=== PATIENT | male | born 1995 | race Asian ===

== ENCOUNTER 2016-09-18 11:07 | Inpatient (IN) | payer BC ==
--- NOTE | 2016-09-15 22:13 | NUR ---
Rounds Patient is in stable condition. No signs of distress noted. Call light is within reach.
[~2016-09-18] VITALS: Ht 170.2 cm; Wt 63.5 kg
[2016-09-18 11:17] VITALS: BP 117/69; PULSE 127; RESP 18; TEMP 99.2; O2SAT 100
--- NOTE | 2016-09-18 11:17 | NUR ---
Patient to ER bed 7 to gown for evaluation. Side rails up. Assumed care.
--- NOTE | 2016-09-18 11:20 | NUR ---
Pt AAOx4 c/o RLQ abd since this AM. Pt has no significant med hx. Pt c/o nausea also.
--- NOTE | 2016-09-18 11:25 | NUR ---
ER at bedside examining patient.
[2016-09-18] MEDS ORDERED: ONDANSETRON HCL 4 MG/2 ML VIAL IVP ONE (12:00)
[2016-09-18] MEDS ORDERED: MORPHINE 4 MG/ML INJ. SYRINGE IVP ONE (12:00)
[2016-09-18 12:01] LABS: BILIRUBIN,URINE NEGATIVE (NEGATIVE); BLOOD, URINE NEGATIVE (NEGATIVE); CLARITY/URINE CLEAR (CLEAR); COLOR,URINE YELLOW (YELLOW); GLUCOSE,URINE NEGATIVE (NEGATIVE); KETONES,URINE TRACE (NEGATIVE); LEUKOCYTE ESTERASE ,URINE NEGATIVE (NEGATIVE); NITRITE, URINE NEGATIVE (NEGATIVE); PH,URINE 8.5 (5.0-8.0); PROTEIN URINE NEGATIVE (NEGATIVE); UROBILINOGEN,URINE 0.2 (0.2-1.0)
[2016-09-18 12:16] LABS: BASOPHILS % (AUTO) 0.1 % (0.0-2.0); EOSINOPHILS % (AUTO) 0.3 % (0.0-4.0); HEMATOCRIT 43.8 % (36-54); HEMOGLOBIN 14.4 g/dL (14.0-18.0); LYMPHOCYTES # (AUTO) 1.3 K/uL (1.0-5.5); LYMPHOCYTES % (AUTO) 9.8 % (20.5-51.5); MEAN CORPUSCULAR HEMOGLOBIN 27 pg (27-31); MEAN CORPUSCULAR HGB CONC 33 % (32-36); MEAN CORPUSCULAR VOLUME 80 fL (79.0-98.0); MONOCYTES # (AUTO) 0.3 K/uL (0.0-1.0); MONOCYTES % (AUTO) 2.6 % (1.7-9.3); NEUTROPHILS # (AUTO) 11.5 K/uL (1.8-7.7); NEUTROPHILS % (AUTO) 87.2 % (40.0-70.0); PLATELET COUNT (AUTO) 238 K/uL (130-430); RED BLOOD CELL COUNT(AUTO) 5.44 MIL/uL (4.2-6.2); WHITE BLOOD COUNT (AUTO) 13.1 K/uL (4.8-10.8)
[2016-09-18 12:24] LABS: CALCIUM 8.9 mg/dL (8.4-11.0); CREATININE 0.97 mg/dL (0.55-1.30); POTASSIUM 3.4 mmol/L (3.5-5.1); PROTHROMBIN TIME 10.8 SECS (9.5-12.5)
[2016-09-18 12:29] LABS: TOTAL BILIRUBIN 1.9 mg/dL (0.0-1.0); TOTAL PROTEIN, SERUM 7.7 g/dL (6.4-8.3)
--- NOTE | 2016-09-18 12:30 | NUR ---
Pt medicated tolerated well. Continuing to monitor
--- NOTE | 2016-09-18 13:05 | NUR ---
Pt received CT scan abd/pelvis tolerated well. Pt report nausea resolved,paini resolving
[2016-09-18] MEDS ORDERED: ONDANSETRON HCL 4 MG/2 ML VIAL ONE (14:13)
[2016-09-18] MEDS ORDERED: NACL 0.9% 1,000 ML IV ONE (14:45)
[2016-09-18] MEDS ORDERED: PROMETHAZINE HCL 25 MG/ML AMP IVP ONE (14:45)
--- NOTE | 2016-09-18 15:00 | NUR ---
At this of discharge pt did not appear stable for follow up. Dr. Mantilla informed. Pt and family agreed for pt admission.
--- NOTE | 2016-09-18 15:45 | NUR ---
Patient will be admitted to care of Dr. Romano. Admitted to Med/surg unit. Will go to room 117a. Summary report printed. Report given to Admission RN.
--- NOTE | 2016-09-18 16:01 | NUR ---
ADMISSION NOTE Received patient from ER via gurney. Patient admitted with diagnosis of ABDOMINAL PAIN. Patient is awake, alert, oriented X 4. Patient is aware that FREDDY will be the RN and the room number is 117A. Patient oriented to hospital room, call light, toileting, pain management and safety-teach back done. Personal belongings checked and Belongings List documented. Call light within reach.
[2016-09-18 16:18] VITALS: BP 97/52; PULSE 95; RESP 18; TEMP 98.2; O2SAT 99
--- NOTE | 2016-09-18 16:40 | NUR ---
INITIAL NOTES RECEIVED PATIENT ON BED AWAKE.BREATHING EVEN AND UNLABORED WITH COMPLAIN OF MILD DISCOMFORT TO ABDOMEN 07/25.WITH IVF INFUSING WELL;NO SIGNS AND SYMPTOMS OF INFILTRATION.SAFETY AND FALL PRECAUTIONS IN PLACE.CALL LIGHT WITHIN REACH.ORIENTED TO ROOM.INSTRUCTED NOT TO GET UP UNASSISTED DUE TO RISK FOR FALL;AGREED AND VERBALIZED UNDERSTANDING
[2016-09-18] MEDS ORDERED: FLU VACC QS 2016-17(36MOS+)/PF 0.5 ML/SYR SYRINGE I.M. PRN (16:45)
--- NOTE | 2016-09-18 17:40 | NUR ---
NOTES DR. CHONG CAME AND EXAMINED THE PATIENT;WAITING FOR ORDERS
[2016-09-18] MEDS: POTASSIUM CHLORIDE 20 MEQ in D5NS 1,000 ML IV SCH (17:57)
[2016-09-18] MEDS ORDERED: ONDANSETRON HCL 4 MG/2 ML VIAL IVP PRN (18:00)
[2016-09-18] MEDS ORDERED: KETOROLAC TROMETHAMINE 15 MG VIAL IVP PRN (18:00)
--- NOTE | 2016-09-18 18:35 | NUR ---
CLOSING NOTES PATIENT ON BED AWAKE.BREATHING EVEN AND UNLABORED.NO ACUTE DISTRESS.IVF INFUSING WELL;NO SIGNS AND SYMPTOMS OF INFILTRATION.SAFETY AND FALL PRECAUTIONS IN PLACE.CALL LIGHT WITHIN REACH.WILL ENDORSE TO NEXT SHIFT ACCORDINGLY
--- NOTE | 2016-09-18 20:03 | NUR ---
Opening Note Report received from Kristyn day shift RN. Patient is in stable condition. No signs of distress noted. Call light is within reach. Instructed to use it whenever in need of assistance to avoid any falls. Patient verbalized understanding. IV is on the left hand 22g running D5NS@100.
[2016-09-18 20:05] VITALS: BP 105/46; PULSE 89; RESP 16; TEMP 99.7; O2SAT 98
[2016-09-18] MEDS: ENOXAPARIN SODIUM 40 MG/0.4 ML SYRINGE SUBCUT SCH ×2 (21:09→21:21)
--- NOTE | 2016-09-18 22:32 | NUR ---
Rounds Patient is currently sleeping in bed. Call light is within reach.
--- NOTE | 2016-09-19 00:17 | NUR ---
Rounds Patient is currently sleeping in bed. No signs of distress noted. Call light is within reach.
[2016-09-19 00:21] VITALS: BP 109/50; PULSE 87; RESP 15; TEMP 99.1; O2SAT 97
--- NOTE | 2016-09-19 02:32 | NUR ---
Rounds Patient is resting in bed. Call light is within reach.
[2016-09-19] MEDS: POTASSIUM CHLORIDE 20 MEQ in D5NS 1,000 ML IV SCH ×3 (02:44→23:35)
[2016-09-19 04:23] VITALS: BP 102/56; PULSE 68; RESP 15; TEMP 98.7; O2SAT 100
--- NOTE | 2016-09-19 04:37 | NUR ---
Rounds Patient is complaining of diarrhea. Will notify MD later on this morning.
[2016-09-19 06:42] LABS: CALCIUM 7.8 mg/dL (8.4-11.0); CREATININE 0.94 mg/dL (0.55-1.30); POTASSIUM 3.2 mmol/L (3.5-5.1)
[2016-09-19 06:48] LABS: BASOPHILS % (AUTO) 0.1 % (0.0-2.0); EOSINOPHILS # (AUTO) 0.1 K/uL (0.0-0.4); EOSINOPHILS % (AUTO) 1.6 % (0.0-4.0); HEMATOCRIT 35.4 % (36-54); HEMOGLOBIN 11.9 g/dL (14.0-18.0); LYMPHOCYTES # (AUTO) 1.8 K/uL (1.0-5.5); LYMPHOCYTES % (AUTO) 19.3 % (20.5-51.5); MEAN CORPUSCULAR HEMOGLOBIN 27 pg (27-31); MEAN CORPUSCULAR HGB CONC 33 % (32-36); MEAN CORPUSCULAR VOLUME 81 fL (79.0-98.0); MONOCYTES # (AUTO) 0.6 K/uL (0.0-1.0); MONOCYTES % (AUTO) 6.2 % (1.7-9.3); NEUTROPHILS # (AUTO) 6.6 K/uL (1.8-7.7); NEUTROPHILS % (AUTO) 72.8 % (40.0-70.0); PLATELET COUNT (AUTO) 176 K/uL (130-430); RED CELL DISTRIBUTION WIDTH 12.9 % (9.0-15.0)
--- NOTE | 2016-09-19 06:50 | NUR ---
Opening Note Patient is currently resting in bed. No complaints at the moment. IV is on the left hand running D51/2NS+20KCL@100ml/hr. Call light is within reach. Will give report to the oncoming nurse.
[2016-09-19 07:03] LABS: WHITE BLOOD COUNT (AUTO) 9.1 K/uL (4.8-10.8)
--- NOTE | 2016-09-19 07:27 | NUR ---
INITIAL NOTES RECEIVED PATIENT ON BED ASLEEP.BREATHING EVEN AND UNLABORED.NO ACUTE DISTRESS.IVF INFUSING WELL;NO SIGNS AND SYMPTOMS OF INFILTRATION.SAFETY AND FALL PRECAUTIONS IN PLACE.CALL LIGHT WITHIN REACH
[2016-09-19 08:21] VITALS: BP 119/67; PULSE 80; RESP 18; TEMP 98.7; O2SAT 100
--- NOTE | 2016-09-19 11:00 | NUR ---
NOTES CHECKED PATIENT;NEEDS ATTENDED TO
--- NOTE | 2016-09-19 13:24 | NUR ---
NOTES DR. CHONG CAME AND EXAMINED THE PATIENT;WITH ORDERS MADE AND CARRIED OUT
[2016-09-19] MEDS ORDERED: POTASSIUM CHLORIDE 20 MEQ TAB.PRT.SR PO ONE (13:30)
--- NOTE | 2016-09-19 14:18 | NUR ---
NOTES CHECKED PATIENT;NO ACUTE DISTRESS
--- NOTE | 2016-09-19 17:37 | NUR ---
NOTES CHECKED PATIENT.NEEDS ATTENDED TO
--- NOTE | 2016-09-19 19:50 | NUR ---
ROUNDS PATIENT IN BED, AWAKE, ALERT, ORIENTED, NOT IN DISTRESS, VITALS STABLE. DENIES ANY ABDOMINAL PAIN, N/V, NOR DIARRHEA AT THIS TIME. ASSESSMENT DONE AND DOCUMENTED. SEE FLOWSHEET. NEEDS ATTENDED TO. SAFETY PRECAUTION MEASURES IN PLACED. BED IN LOW AND LOCKED POSITION. CALL LIGHT PLACED WITHIN REACH.
--- NOTE | 2016-09-19 22:00 | NUR ---
ROUNDS PATIENT ASLEEP, NO SOB NOTED, WILL CONTINUE TO MONITOR.
--- NOTE | 2016-09-20 | NUR ---
PATIENT RESTING: Patient resting quietly. No acute distress noted. Vital signs within normal range.
[2016-09-20 01:09] VITALS: BP 114/52; PULSE 64; RESP 17; TEMP 97; O2SAT 98
--- NOTE | 2016-09-20 02:00 | NUR ---
PATIENT RESTING: Patient resting quietly. No acute distress noted. Vital signs within normal range.
[2016-09-20 04:00] VITALS: BP 118/50; PULSE 60; RESP 18; TEMP 97.4; O2SAT 97
--- NOTE | 2016-09-20 04:00 | NUR ---
PATIENT RESTING: Patient resting quietly. No acute distress noted. Vital signs within normal range.
--- NOTE | 2016-09-20 06:48 | NUR ---
CLOSING NOTES PATIENT AWAKE, VITAL STABLE, DENIES ANY PAIN AND DISCOMFORT AT THIS TIME. ALL NEEDS ATTENDED TO. CALL LIGHT PLACED WITHIN REACH.
--- NOTE | 2016-09-20 07:50 | NUR ---
PT IN RESTROOM...AMBULATED WITH STEADY GAIT
[2016-09-20 07:54] LABS: BASOPHILS % (AUTO) 0.1 % (0.0-2.0); EOSINOPHILS # (AUTO) 0.5 K/uL (0.0-0.4); EOSINOPHILS % (AUTO) 9.7 % (0.0-4.0); HEMATOCRIT 35.5 % (36-54); HEMOGLOBIN 11.5 g/dL (14.0-18.0); LYMPHOCYTES # (AUTO) 2.4 K/uL (1.0-5.5); LYMPHOCYTES % (AUTO) 47.9 % (20.5-51.5); MEAN CORPUSCULAR HEMOGLOBIN 27 pg (27-31); MEAN CORPUSCULAR HGB CONC 32 % (32-36); MEAN CORPUSCULAR VOLUME 82 fL (79.0-98.0); MONOCYTES # (AUTO) 0.4 K/uL (0.0-1.0); MONOCYTES % (AUTO) 8.7 % (1.7-9.3); NEUTROPHILS # (AUTO) 1.6 K/uL (1.8-7.7); NEUTROPHILS % (AUTO) 33.6 % (40.0-70.0); PLATELET COUNT (AUTO) 154 K/uL (130-430); RED BLOOD CELL COUNT(AUTO) 4.31 MIL/uL (4.2-6.2)
[2016-09-20 07:57] LABS: WHITE BLOOD COUNT (AUTO) 4.9 K/uL (4.8-10.8)
[2016-09-20 08:26] LABS: CALCIUM 7.9 mg/dL (8.4-11.0); CREATININE 0.78 mg/dL (0.55-1.30); PHOSPHORUS 2.6 mg/dL (2.7-4.5); POTASSIUM 3.8 mmol/L (3.5-5.1)
[2016-09-20] MEDS ORDERED: DIPHENOXYLATE HCL/ATROP SULF 2.5 MG TAB PO ONE (10:00)
--- NOTE | 2016-09-20 10:11 | NUR ---
ROUNDS PT STABLE....SEEN BY DR CHONG....DENIES PAIN...ONLY C/O DIARRHEA....WILL REVIEW AND CARRY OUT NEW ORDERS GIVEN BY DR CHONG....WILL CONT TO [facility]
[2016-09-20] MEDS: POTASSIUM CHLORIDE 20 MEQ in D5NS 1,000 ML IV SCH ×2 (10:58→14:59)
[2016-09-20] MEDS: metroNIDAZOLE 500 mg/NS 100 ML IV SCH ×2 (10:59→14:58)
[2016-09-20 12:00] VITALS: BP 125/81; PULSE 64; RESP 20; TEMP 98; O2SAT 100
--- NOTE | 2016-09-20 12:00 | NUR ---
NARCISA PANDEY TO ASSUME CARE...REPORT GIVEN
--- NOTE | 2016-09-20 12:05 | NUR ---
INITIAL NOTE RECEIVED REPORT FROM VALERY FIERRO. PT ALERT AND ORIENTED X4, ABLE TO MAKE NEEDS KNOWN, NO S/S OF NAUSEA, VOMITING OR COMPLAINT OF ABDOMINAL PAIN AT THIS TIME. IV NOTED TO RIGHT HAND, PATENT AND INFUSING AT PRESCRIBED RATE. PT NOTED TO BE EATING AND TOLERATING JELLO AT THIS TIME, SAFETY MEASURES IN PLACE, BED IN LOW POSITION AND LOCKED, CALL LIGHT WITH IN REACH, WILL FOLLOW UP
--- NOTE | 2016-09-20 14:00 | NUR ---
ROUNDS PT SITTING IN BED, WATCHING LAPTOP, NO COMPLAINT OF ABDOMINAL PAIN, DIARRHEA, NAUSEA OR VOMITING, PT TOLERATING CLEAR LIQUIDS, WILL CONTINUE TO MONITOR
[2016-09-20 16:00] VITALS: BP 130/69; PULSE 72; RESP 20; TEMP 98.6; O2SAT 100
--- NOTE | 2016-09-20 16:00 | NUR ---
ROUNDS PT SITTING IN BED, PLAYING ON LAPTOP, NO COMPLAINT OF DIARRHEA, PAIN, NAUSEA OR VOMITING AT THIS TIME, PATIENT TOLERATING DIET, WILL PAGE DR CHONG TO UPDATE ON PATIENTS STATUS
--- NOTE | 2016-09-20 18:00 | NUR ---
DR CHONG CALLED BACK, HE STATED HE WOULD BE IN TO SEE PATIENT. PATIENT UPDATED THAT MD WILL BE IN TO SEE HIM
--- NOTE | 2016-09-20 19:00 | NUR ---
CLOSING NOTE PT SITTING IN BED, PLAYING ON COMPUTER, NO S/S OF DISTRESS OR COMPLAINT OF PAIN AT THIS TIME, VSS THROUGHOUT SHIFT, IV TO RIGHT HAND PATENT AND INFUSING AT PRESCRIBED RATE, NO COMPLAINT OF NAUSEA, VOMITING OR ABDOMINAL PAIN, MD AWARE THAT PATIENT HAS NOT HAD DIARRHEA SINCE NOON, ALL NEEDS ATTENDED TO, SAFETY MEASURES IN PLACE, BED IN LOW POSITION AND LOCKED, CALL LIGHT WITHIN REACH, DISCHARGE ORDER NOTED, WILL ENDORSE TO FOLLOWING SHIFT.
--- NOTE | 2016-09-20 19:15 | NUR ---
change of shift.pt.2 b d/c home.will initiate the d/c instruction paper woork.have apprised pt.
[2016-09-20 20:00] VITALS: BP 128/56; PULSE 65; RESP 16; TEMP 97.2; O2SAT 100
[2016-09-20 20:40] VITALS: BP 119/79; PULSE 63; RESP 16; TEMP 97.4; O2SAT 100
--- NOTE | 2016-09-20 21:15 | NUR ---
pt.d/c home.father accompanied pt.from the unit.pt.stated he will ambulate:pt.refused the wheel chair.pt.refused flu vaccine.v/s assessed p/t d/c home.belongings reviewed.d/c instructions reviewed.medications:prescribed:flagyl,lomotyil monographs printed reviewed w/ pt.abdomen pain:general information was printed and reviewed.pt.inquired if a specific diet hab been ordered per the dr. Addendum: 09/21/16 at 0047 by Brandon Nash RN diet had been ordered.no specific diet ordered.i reviewed w/the pt.2 proceed with small meals,light foods.pt.apprised me that he had recently added a new food supplement 2 his diet.he will assess if this had been the cause of the abdomen symptoms.v/s values w/in normal limits.no c/o pain,nausea,nor sob[facility]
== END 2016-09-20 21:15 | disposition home or self-care (01) | DRG 392 ==
LOC: SED 11:07 → STU 15:19 → SMU 15:45
PROVIDERS: ADMIT Family Medicine; ATTEND Family Medicine
DX: K29.00 Acute gastritis without bleeding (principal); Z88.2 Allergy status to sulfonamides
CPT/HCPCS: 36415; 76700-TC; 80048; 80053; 81003; 82150-TC; 83690-TC; 83735-TC; 84100-TC; 85025; 85610-TC; 85730-TC; 87230-TC; 96374; 96375; 99285; J1650; J2270; J2405; J3480; J3490; J7030; J7042